=== PATIENT | female | born 1970 | race Caucasian/White ===

== ENCOUNTER 2017-02-22 23:39 | Emergency (ER) | payer MEDICARE, OTHER ==
[~2017-02-22 23:39] MED LIST: ADVAIR HFA 115/1 INH INH; ALPRAZOLAM0.5 MG PO; BUSPAR 10MG10 MG PO; CARDIZEM30 MG; DALIRESP 500500 MCG PO; DOCUSATE CALCI240 MG PO; FEOSOL325 MG PO; FERROUS SULFAT325 M2 PO; MEDROL4 MG PO; METOPROLOL SUCC50 MG PO; MULTIVITAMINS1 EAC1 PO; NEURONTIN 300300 MG PO; OMNICEF 300 MG300 MG PO; PROTONIX40 MG PO; ROBAXIN 750 MG750 MG PO; SEROQUEL50 MG PO; SERTRALINE HCL100 MG PO; SPIRIVA18 MCG INH; TRAZODONE HCL150 MG PO; VENTOLIN/PROVE0.5 ML INH
[2017-02-23 01:12] LABS: HEMOGLOBIN 14.3 gm/dl (12.3-15.3); RED BLOOD COUNT 4.83 M/UL (4.00-5.10); WHITE BLOOD COUNT 13.6 K/UL (4.5-11.0)
[2017-02-23 01:38] LABS: BUN/CREATININE RATIO 55 (0-10)
== END 2017-02-23 12:33 | disposition home or self-care (01) ==
LOC: ER1 23:39
PROVIDERS: Student in an Organized Health Care Education/Training Program
DX: E87.6 Hypokalemia (principal); F11.10 Opioid abuse, uncomplicated; F15.10 Other stimulant abuse, uncomplicated; F12.10 Cannabis abuse, uncomplicated; R41.82 Altered mental status, unspecified; I10 Essential (primary) hypertension; J44.9 Chronic obstructive pulmonary disease, unspecified; Z86.19 Personal history of other infectious and parasitic diseases
CPT/HCPCS: 36415; 70450; 71010; 80053; 80307; 81001; 82550; 82553; 83605; 83874; 84443; 84484; 85025; 85610; 85730; 87040; 87086; 93005; 96360; 96361; 99285; G0480

== ENCOUNTER → 2017-02-24 19:41 | Emergency (ER) | payer MEDICARE, OTHER | END | disposition E | LOC: ER1 19:41 | DX: I46.9 Cardiac arrest, cause unspecified (principal) | CPT/HCPCS: 92950; 99285 ==